=== PATIENT | male | born 1940 | race Caucasian/White ===

== ENCOUNTER 2022-05-03 10:03 | Outpatient (CLI) | payer MEDICARE, SELFPAY ==
[2022-05-03 13:59] LABS: Chloride* 107 mmol/L (96-114); Potassium* 4.8 mmol/L (3.6-5.1); Sodium* 139 mmol/L (135-149)
[2022-05-03 14:01] LABS: Cholesterol* 145 mg/dL (90-199)
[2022-05-03 14:02] LABS: Alanine Aminotransferase* 28 U/L (4-50); Blood Urea Nitrogen* 34 mg/dL (7-30); Calcium* 9.3 mg/dL (8.4-10.6); Carbon Dioxide* 22 mmol/L (20-32); Creatinine* 1.7 mg/dL (0.5-1.5); Estimated Glomerular Filt Rate 40 ml/min; Glucose* 96 mg/dL (60-115); Triglycerides* 132 mg/dL (40-149)
[2022-05-03 14:03] LABS: HDL Cholesterol* 39 mg/dL (>=40); LDL Cholesterol Calculated 80 mg/dL (<100)
== END 2022-05-03 10:04 | disposition home or self-care (01) ==
PROVIDERS: PCP Family Medicine; Visit Provider Family Medicine
DX: E78.5 Hyperlipidemia, unspecified (principal); I10 Essential (primary) hypertension; N40.0 Benign prostatic hyperplasia without lower urinary tract symptoms
CPT/HCPCS: 80048; 80061; 84460

== ENCOUNTER 2022-08-20 14:34 | Outpatient (CLI) | payer MEDICARE, SELFPAY | END 2022-08-20 14:35 | disposition home or self-care (01) | LOC: NFLDREF 08-25 11:25 | PROVIDERS: PCP Family Medicine; Visit Provider Family Medicine | DX: R31.9 Hematuria, unspecified (principal); R31.29 Other microscopic hematuria; I10 Essential (primary) hypertension | CPT/HCPCS: 87086 ==

== ENCOUNTER 2022-08-30 08:15 | Outpatient (CLI) | payer MEDICARE, SELFPAY ==
--- NOTE | 2022-08-30 09:00 | CRLHL7_ITS ---
For Patients: As a result of the Century Cures Act, medical imaging exams and procedure reports are released immediately into your electronic medical record. You may view this report before your referring provider. If you have questions, please contact your health care provider. INDICATION: Microscopic hematuria. Inguinal hernia repair. Lumbar laminectomy. TECHNIQUE: Noncontrast abdominal pelvic CT. COMPARISON: April 10, 2015. FINDINGS: Clear included lung bases. Vascular calcifications in the chest including the coronary artery distribution. Small esophageal hiatal hernia. The unenhanced liver, spleen, pancreas, gallbladder, and adrenal glands are normal. Renal cysts. 8 millimeter hyperdense cyst lateral right kidney likely proteinaceous or hemorrhagic in nature. No solid renal mass or obstruction. One or 2 tiny calcification superior medial pole left kidney may reflect 1 or 2 tiny nonobstructing stones. Vascular calcification within a normal caliber abdominal aorta and iliac arteries. Sigmoid diverticulosis without active diverticulitis. Normal appendix. Mild prostatic enlargement. Prostatic calcifications. Calcified pelvic phleboliths. Normal-appearing urinary bladder. No ascites, lymphadenopathy, bowel obstruction, or ileus. Postsurgical change from lower lumbar laminectomies. No acute compression fractures of the included spine. IMPRESSION: 1. Two tiny adjacent calcifications upper left kidney likely tiny nonobstructing stones. 2. Renal cysts with a tiny hyperdense 8 mm right renal cortical cyst likely proteinaceous or hemorrhagic. 3. Left tony colonic diverticulosis without diverticulitis. 4. Vascular calcifications in the chest abdomen and pelvis predominantly arterial. Please note that all CT scans at this facility use dose modulation, iterative reconstruction, and/or weight-based dosing when appropriate to reduce radiation dose to as low as reasonably achievable. Dictated by Ryan Camargo MD @ 08/30/2022 8:46:50 AM (Electronically Signed)
== END 2022-08-30 08:16 | disposition home or self-care (01) ==
PROVIDERS: PCP Family Medicine; Visit Provider Family Medicine
DX: R31.29 Other microscopic hematuria (principal); N28.89 Other specified disorders of kidney and ureter; N28.1 Cyst of kidney, acquired; K57.30 Diverticulosis of large intestine without perforation or abscess without bleeding
CPT/HCPCS: 74176

== ENCOUNTER 2022-09-06 11:46 | Outpatient (CLI) | payer MEDICARE, SELFPAY ==
[2022-09-06 16:14] LABS: Chloride* 108 mmol/L (96-114); Potassium* 4.8 mmol/L (3.6-5.1); Sodium* 141 mmol/L (135-149)
[2022-09-06 16:16] LABS: Creatinine* 2.2 mg/dL (0.5-1.5); Estimated Glomerular Filt Rate 29 ml/min
[2022-09-06 16:17] LABS: Blood Urea Nitrogen* 53 mg/dL (7-30); Calcium* 8.9 mg/dL (8.4-10.6); Carbon Dioxide* 26 mmol/L (20-32); Glucose* 97 mg/dL (60-115)
== END 2022-09-06 11:47 | disposition home or self-care (01) ==
LOC: FBOREF 11:47
PROVIDERS: PCP Family Medicine; Visit Provider Family Medicine
DX: I10 Essential (primary) hypertension (principal)
CPT/HCPCS: 80048

== ENCOUNTER 2022-10-01 11:48 | Outpatient (CLI) | payer MEDICARE, SELFPAY ==
[2022-10-01 14:06] LABS: Chloride* 108 mmol/L (96-114)
[2022-10-01 14:07] LABS: Potassium* 4.7 mmol/L (3.6-5.1); Sodium* 141 mmol/L (135-149)
[2022-10-01 14:09] LABS: Creatinine* 1.8 mg/dL (0.5-1.5); Estimated Glomerular Filt Rate 37 ml/min
[2022-10-01 14:10] LABS: Blood Urea Nitrogen* 33 mg/dL (7-30); Calcium* 8.9 mg/dL (8.4-10.6); Carbon Dioxide* 27 mmol/L (20-32); Glucose* 93 mg/dL (60-115)
== END 2022-10-01 11:49 | disposition home or self-care (01) ==
LOC: NFLDREF 11:48
PROVIDERS: PCP Family Medicine; Visit Provider Family Medicine
DX: I10 Essential (primary) hypertension (principal)
CPT/HCPCS: 80048

== ENCOUNTER 2023-03-08 11:44 | Outpatient (CLI) | payer MEDICARE, SELFPAY | END 2023-03-08 11:45 | disposition home or self-care (01) | PROVIDERS: PCP Family Medicine; Visit Provider Family Medicine | DX: E55.9 Vitamin D deficiency, unspecified (principal); E53.8 Deficiency of other specified B group vitamins; E03.9 Hypothyroidism, unspecified; I10 Essential (primary) hypertension; E78.5 Hyperlipidemia, unspecified; R20.0 Anesthesia of skin | CPT/HCPCS: 80048; 82306; 82607; 84439; 84443; 85025 ==

== ENCOUNTER 2023-07-08 15:13 | Outpatient (CLI) | payer MEDICARE, SELFPAY | END 2023-07-08 15:14 | disposition home or self-care (01) | LOC: NFLDUCREF 15:14 | PROVIDERS: PCP Family Medicine; Visit Provider Physician Assistant | DX: R60.0 Localized edema (principal) | CPT/HCPCS: 83880 ==

== ENCOUNTER 2023-07-29 09:00 | Outpatient (RCR) | payer MEDICARE, SELFPAY ==
--- NOTE | 2023-05-09 15:42 | PT.OPEX ---
PT [facility] Outpatient Eval PT [facility] Outpatient Eval Start: 05/09/23 11:05 Freq: Status: Active Protocol: Document 05/09/23 11:05 LINDSAYJAYLEN (Rec: 05/09/23 15:16 CASSANDRA [id number]) E-signed By [facility] Out[facility] Evaluation Insurance Information Recert Due Date 08/08/23 Insurance Name Medicare Maribel Olivares Medical Diagnosis R26.89 Other abnormalities of gait and mobility Treating Diagnosis R26.81 Unsteadiness on feet R26.9 Gait abnormality Referring MD Leandro Brunson Subjective Subjective Pt present to PT with complaints of balance problems . Pt reports that he has had some troubles with balance and has fallen a lot. Last fall was 3 weeks ago, he rolled out of bed. In the last 6 months, pt has fallen around 3 or 4 times. Pt says sometimes he's walking forward and then will fall sideways. Pt reports that he has high BP and will get dizzy if he stands up too fast . Pt displays some confusion, stating that he's here because the sun hurts him. Provides some hx that doesn't make sense. Denies getting dizzy when he's walking. Pt does not use SPC or walker. Lives at home with spouse and currently drives. Denies changes in vision, new numbness/tingling, swallowing, and speech. Pt states that he had an operation in his back a few years ago and if he lifts something, sometimes his back hurts. He also has some numbness/tingling that travels down the L posterior leg that comes and goes depending on the activity the pt is performing. Occasionally sees a chiropractor for back pain. Date of Last Physician Visit 04/12/23 Current Work Status Retired Precautions Treatment Precautions/Contraindications PMHx: hypothyroidism, pituitary adenoma, HTN, HLD Therapy Limitations/Systems Review Cognition Objective Range of Motion UE: B shoulder flexion limited to ~120 degrees LE: WNLs B Strength UE strength: BUE strength symmetrical and WNLs LE strength: Hip flexion L/R = 5/4+ Hip abd L/R = 5/5 Hip add L/R = 5/5 Quads L/R = 5/5 Hamstrings L/R = 5/5 Dorsiflexion L/R = 4+/4+ Balance & Gait EC: moderate sway, no LOB, able to hold 30s Unsupported on foam: moderate sway, mult LOB posteriorly EC on foam: moderate sway, no LOB Marching unsupported on foam: no LOB, mild unsteadiness Ambulates with narrow MARLO, mild sway, no AD use. Displays limited tolerance to activity , fatigue and SOB with walk down hallway ~50' Occasionally will shuffle feet while walking during activities that challenge his balance Functional Test Performed & Score High = 37/56 TUG = 9.54s 5xSTS = 21.62s Assessment Assessment/Impression Pt is a 83yo M presenting to PT with complaints of balance deficits. PMHx: hypothyroidism , pituitary adenoma, HTN, HLD. Pt reports that he's fallen 3 -4x in the last 6 months. Does not use an AD. He states that he'll be walking and start leaning towards one side and stumble. Pt displays some cognitive deficits. Pt thought he was coming to PT because the sun makes him tired. Upon exam, pt displays good strength in BUEs and LEs. Pt tends to shuffle LEs during gait when he is unsure about a situation. Pt scored a 37/56 on the High as well as 21.62s on the 5xSTS, both indicating that pt is a fall risk. Most of pt's deficits are evident during SL stance. Pt also displays reduced activity tolerance, requiring frequent rest breaks. Pt was educated on and given HEP for home focusing on SL stance. Pt would continue to benefit from skilled PT services to address balance and gait deficits and reduce fall risk. Primary Functional Limitations Balance and gait deficits Frequent falls Plan of Care Rehabilitation Potential Good Physical Therapy Goals In 4-6 weaks: 1. Pt will inc High score > 4 points in order to reduce fall risk. 2. Pt will reports no falls in the next 8 weeks in order to show balance improvement. 3. Pt will perform the 5xSTS in <16s in order to reduce fall risk. Coordination/Communication With Referral Source Treatment Plan/Direct Interventions Gait Training,Neuromuscular Re -ed,Self-Care/Home Management, Therapeutic Activities, Therapeutic Exercises Frequency/Duration 1x/week for 6 weeks Patient Will Be Discharged From Therapy Completion of LTG(s),Skills Plateau,Independent w/HEP, Independently Progressing Evaluation Billing Untimed Code Treatment Minutes 40 PT Eval No Charge No Complexity Moderate Certification Information Initial Certification Date 05/09/23 Ending Certification Date 08/08/23 Provider Signature Shows Agreement With POC & Medical Necessity Physician Comment/Change : Physician NPI Number #
== END 2023-09-19 08:11 | disposition home or self-care (01) ==
PROVIDERS: PCP Family Medicine; Visit Provider Family Medicine
DX: R26.89 Other abnormalities of gait and mobility (principal); Z51.89 Encounter for other specified aftercare
CPT/HCPCS: 97110; 97112; 97162; 97535

== ENCOUNTER 2023-08-10 10:52 | Outpatient (CLI) | payer MEDICARE, SELFPAY | END 2023-08-10 10:53 | disposition home or self-care (01) | LOC: FBOREF 10:53 | PROVIDERS: PCP Family Medicine; Visit Provider Family Medicine | DX: I10 Essential (primary) hypertension (principal) | CPT/HCPCS: 80048 ==

== ENCOUNTER 2023-09-06 11:26 | Outpatient (CLI) | payer MEDICARE, SELFPAY ==
--- OUTSIDE RECORDS SUMMARY | 2023-09-06 11:34 | XMS_ITS | Continuity of Care Document ---
Author Name [facility] Organization [facility] Care Team Providers Care Bridge Engineer Name Role Phone [facility] Unavailable Unavailable Problems Combined list of problems from Department of [facility] and [facility] facilities. It does not include entries that were removed or entered in error. Problem Status Onset Date Problem Type Date of Resolution Comments Source Diagnosis: ICD-10-CM H90.5 Unspecified sensorineural hearing loss Active Diagnosis [facility] Diagnosis: ICD-10-CM Z46.1 Encounter for fitting and adjustment of hearing aid Active Diagnosis [facility] Diagnosis: ICD-10-CM H69.93 Unspecified Eustachian tube disorder, bilateral Active Diagnosis [facility] Diagnosis: ICD-10-CM H90.3 Sensorineural hearing loss, bilateral Active Diagnosis [facility] Immunizations Combined list of available immunizations from the Department of [facility] and [facility] facilities. Immunization Series Date Given Administered By Site Reaction Lot Number CVX Code Drug Occupational Therapist Rehab Manager Status Comments Source COVID-19 (NASOFORM), MRNA, LNP-S, PF, 30 MCG/0.3 ML DOSE 2 2020 208 complet ed PFR; [id number]; 1 [facility] COVID-19 (PFIZER), MRNA, LNP-S, PF, 30 MCG/0.3 ML DOSE 1 2020 208 complet ed PFR; [id number]; 1 [facility] Encounters Combined list of: 1) Encounters from Department of [facility] facilities going back up to thelast 18 months. 2) Encounters from the Department of [facility] facilities going back up to 280 months. Location Location Details Encounter Type Encounter Number Reason For Visit Attending Provider ADM Date DC Date Status Disposition Source [facility] O/P EST [place]AL [place] [id number] Diagnos is: ICD-10- CM H90.3 Sensori neural hearing loss, bilater al
JANETTE CORBIN AEL F 03/17 [facility] HEARING AID FITTING/CH ECKING [id number] Diagnos is: ICD-10- CM Z46.1 Encount er for fitting and adjustm ent of hearing aid<br/ > VIRI ESCALANTE RTHA R 05/04 [facility] Outpatient Encounter [id number] Diagnos is: ICD-10- CM H90.5 Unspeci fied sensori neural hearing loss
[facility] 05/20 [facility] OFF[facility] O/P NEW MOD 45-59 MIN [id number] Diagnos is: ICD-10- CM H69.93 Unspeci fied Eustach marlen tube disorde r, bilater al
REINIER ARIAS LA 06/04 [facility] Outpatient Encounter [id number] Diagnos is: ICD-10- CM H90.5 Unspeci fied sensori neural hearing loss
BOAZ DE LA ROSA 09/08 [facility] Outpatient Encounter [id number] JANICE SANTANA 09/30 [facility] HEARING AID FITTING/CH ECKING [id number] Diagnos is: ICD-10- CM Z46.1 Encount er for fitting and adjustm ent of hearing aid<br/ > MYA GARAY 10/12 [facility] Outpatient Encounter [id number] Diagnos is: ICD-10- CM H90.5 Unspeci fied sensori neural hearing loss
BOAZ DE LA ROSA 10/13 [facility] Outpatient Encounter [id number] 02/16 [facility] Outpatient Encounter [id number] 03/28 [facility] Outpatient Encounter [id number] 05/23 [facility] Outpatient Encounter [id number] 07/07 [facility]
--- OUTSIDE RECORDS SUMMARY | 2023-09-06 11:35 | XMS_ITS | Clinical Summary ---
Author Name Unknown Organization [facility] Address [place], [place] [address] Care Team Providers Care Media Production Manager Name Role Phone Leandro Brunson MD Primary Care Provider + Barby Jiang MD Unavailable [phone] Brien Parsons MD Unavailable Howie Machado MD Unavailable [phone] Allergies Active Allergy Reactions Criticality Noted Date Comments Hydrocodone Nausea Only 04/05/2019 Ibuprofen *Unknown 02/16/2019 Small intenstinal bacterial overgrowth Prednisolone GI Upset 02/03/2019 Intestinal bacterial overgrowth Omeprazole Other - Describe In Comment Field High 08/23/2019 Small Intestinal issues Medications Medication Sig Dispensed Refills Start Date End Date Status simvastatin (ZOCOR) 20 mg tablet Take 20 mg by mouth at bedtime. 0 02/12/2019 Active aspirin chewable 81 mg chewable tablet Take 1 tablet by mouth once daily with a meal. May resume 06/19/19 0 06/19/2019 Active losartan (COZAAR) 100 mg tablet Take 1 tablet by mouth once daily. 0 12/10/2019 Active tamsulosin (FLOMAX) 0.4 mg capsule Take 1 Capsule (0.4 mg) by mouth once daily after a meal. 0 11/17/2020 Active pantoprazole (PROTONIX) 40 mg delayed-release tablet Take 1 Tablet (40 mg) by mouth once daily. 0 11/17/2020 Active ipratropium (ATROVENT NASAL) 21 mcg (0.03 %) nasal spray 2 sprays once daily 0 11/13/2020 Activ e syringe with needle, safety 3 mL 18 gauge x 1 1/2 syrgIndications:Low testosterone As directed. Use to draw up and inject testosterone every 2 weeks 6 Syringe 3 11/17/2020 Active Safety [place] (BD SafetyGlide Needle) 18 gauge x 1 1/2 ndleIndications:Low testosterone As directed. 6 Each 3 11/24/2020 Active B-D 3cc Luer-Jeniffer Syr 64Gr9-8/2 3 mL 18 x 1 1/2 syrgIndications:Oth er specified abnormal findings of blood chemistry DIRECTED. USE TO DRAW UP AND INJECT TESTOSTERONE EVERY 2 WEEKS 6 Each 3 01/28/2022 Active metoprolol succinate (TOPROL XL) 100 mg Sustained-Release tablet Take 100 mg by mouth once daily. 0 01/11/2022 Active doxazosin (CARDURA) 4 mg tablet Take 4 mg by mouth once daily. 0 05/13/2022 Active escitalopram oxalate (LEXAPRO) 10 mg tablet Take 10 mg by mouth once daily. 0 05/03/2022 Active [place] Disp [place] 68Ii4-7/2 22 gauge x 1 1/2 ndleIndications:Low testosterone DIRECTED. USE TO INJECT TESTOSTERONE EVERY 2 WEEKS 6 Each 3 06/27/2022 Active hydrocortisone PF (Solu-CORTEF Act-O-Vial, PF,) 100 mg/2 mL injectionIndication s:Low serum cortisol level Inject 2 mL (100 mg) intramuscular one time if needed (use if unable to take oral hydrocortisone.). Use as needed for critical illness and unable to tolerate oral glucocorticoids 2 mL 3 07/12/2022 Active B-D 3cc Luer-Jeniffer Syr 92Bg6-2/2 3 mL 21 gauge x 1 1/2 syrgIndications:Low serum cortisol level DIRECTED. USE NEEDED FOR STEROID INJECTION 12 Each 3 08/09/2022 Active furosemide (LASIX) 40 mg tablet Take 40 mg by mouth every morning. 0 08/20/2022 Active finasteride (PROSCAR) 5 mg tablet Take 5 mg by mouth every morning. 0 Active levothyroxine (SYNTHROID) 75 mcg tabletIndications:P ituitary adenoma (HC),Other specified hypothyroidism Take 1 Tablet (75 mcg) by mouth before breakfast. 90 Tablet 3 02/22/2023 Active hydrocortisone (CORTEF) 10 mg tabletIndications:P ituitary adenoma (HC),Secondary adrenal insufficiency (HC) 10 mg upon waking and 10 mg 6-8 hours later. Take with food 180 Tablet 2 02/22/2023 Active testosterone cypionate (DEPO-TESTOSTERONE) 100 mg/mL injectionIndication s:Low testosterone Inject 100 mg intramuscular every 2 weeks. 10 mL 3 02/22/2023 Active clonazePAM (KLONOPIN) 0.5 mg tabletIndications:R BD (REM behavioral disorder) Take 1 Tablet (0.5 mg) by mouth at bedtime. 30 Tablet 3 06/14/2023 Active BD Regular Bevel [place] 22 gauge x 1 ndleIndications:Low testosterone USE DIRECTED TO INJECT TESTOSTERONE EVERY 2 WEEKS 6 Each 3 07/26/2023 Active CPAPIndications:GIBSON (obstructive sleep apnea) CPAP machine for home use at pressure 11 cmw, full face mask x1/3month with a full face cushion x1/mo 1 Each 11 08/03/2023 Active Active Problems Problem Noted Date Diagnosed Date GIBSON 05/26/2021 AHI- 7.2 FFM 01/07/2022 RBD (REM behavioral disorder) 01/07/2022 Pituitary adenoma 06/15/2019 Disorders of bursae and tend ons in shoulder region, unspecified 11/28/2007 Esophageal reflux 12/28/2006 Overview: Developed SIBO on proton pump inhibitor. Now uses Tums as needed Unspecified essential hypertension 12/28/2006 Other and unspecified hyperlipidemia 12/28/2006 Hypertrophy of prostate with out urinary obstruction and other lower urinary tract symptoms (LUTS) 12/28/2006 Encounters Date Type Department Care Team Description 08/11/2023 Telephone [facility] [address] [place] [address] Rafa Almaraz, AuD Hearing Aid 08/03/2023 11:30 AM APPRENTICE MACHINIST OUTSIDE Office Visit [facility] [address] [place] [address] Sudeep Quan MD Sleep Follow-up 08/03/2023 Travel 07/25/2023 Refill [facility] [address] [phone] Barby Jiang MD Refill Request (Bd Regular Bevel [place]) 07/07/2023 10:30 AM APPRENTICE MACHINIST OUTSIDE Office Visit [facility] [address] [place] [address] Rafa Almaraz, Sosa Hearing Aid 07/07/2023 Travel 06/27/2023 Telephone [facility] [address] [facility] [address] [place] [phone] Barby Jiang MD Appointment 06/27/2023 Telephone [facility] [address] [place] [address] Rafa Almaraz, [facility] (/) 06/16/2023 Telephone [facility] [address] [place] [address] Rafa Almaraz AuD 06/14/2023 Refill [facility] [address] [place] [address] Sudeep Quan MD Refill Request (CLONAZEPAM) 06/06/2023 Telephone [facility] [address] [facility] [place] [address] Rafa Almaraz, Sosa Hearing Aid from Last 3 Months Immunizations Name Administration Dates Next Due AMB INFLUENZA IIV3 (AGE 65+ YRS) PF (Flu Clinic Only) 05/18/2019,06/06/2018 COVID-19 vaccine (Pfizer-Bio NTech 30mcg/0.3mL) 12YO+ BIVALENT PF, MDV 05/31/2022 COVID-19 vaccine (Pfizer-Bio NTech 30mcg/0.3mL) PF, MDV 10/04/2020,09/13/2020 HepA-HepB (Twinrix) 02/17/2015, 8,09/27/2007,2006 Influenza, High-dose Inactivated 07/27/2016,05/08,05/06/2014 Influenza, High-dose Quadriv alent Inactivated 05/21/2022 Influenza, IIV3 (Age 6-35 mos) 08/15/2013 Influenza, IIV3 (Age >=3 years) 05/25/1997 Influenza, IIV4 04/15/2015 Influenza, Inactivated AIIV4 (Age 65+ Years) Preserv Free 05/03/2023,04/22/2021,04/15/2020 Influenza, Inactivated IIV3 (Age 65+ Years) Preserv Free 06/03/2017 Pneumococcal Poly,23-Valent (Pneumovax) 04/05/2018,12/28/2006 Pneumococcal conj 13-Valent (Prevnar 13) 11/12/2014 Td (Age >=7 Years) 08/04/2004 Tdap 03/08/2023 Typhoid (injectable) 02/04/2012 Zoster (Shingrix-RZV, recombinant) 09/21/2018, Zoster (Zostavax-ZVL, live) 12/28/2006 Family History Medical History Relation Name Comments Hypertension Brother 3 Heart Disease Brother 4 heart valve pr oblem Heart Disease Father Sudden a t home in his 70s, presumably cardiac in nature Hyperlipidemia Sister 1 Diabetes Sister 2 Relation Name Status Comments Brother 1 Alive Brother 2 Alive Brother 3 Alive Brother 4 Alive Father (Age 70s) Mother age 98 Sister 1 Alive Sister 2 Alive Social History Tobacco Use Types Packs/Day Years Used Date Smoking Tobacco: Former Cigarettes 1 45 0 09/27/1956 - 09/27/2001 Smokeless Tobacco: Never Tobacco Cessation:Counseling Given: Yes Alcohol Use Standard Drinks/Week Comments Not Currently 0 (1 standard drink = 0.6 oz pur e alcohol) occas Social Connections Answer Date Recorded Frequency of Communication with Friends and Fami ly Not on file 08/08/2021 Financial Resource Strain Answer Date R ecorded Difficulty of Paying Living Expenses Not on file 08/08/2021 Difficulty of Paying Living Expenses Not on file 08/08/2021 Sex and Gender Information Value Date Recorded Sex Assigned at Not on file Gender Identity Not on file Sexual Orientation Not on file Obstetrics History Last Filed Vital Signs Vital Sign Reading Time Taken Comments Blood Pressure 181/76 08/03/2023 11:36 AM APPRENTICE MACHINIST OUTSIDE Pulse 57 08/03/2023 11:32 AM APPRENTICE MACHINIST OUTSIDE Temperature 36.7 ??C (98 ??F) 08/25/2020 9:44 AM APPRENTICE MACHINIST OUTSIDE Respiratory Rate 14 12/28/2021 1:04 PM CDT Oxygen Saturation 99% 08/03/2023 11: 32 AM APPRENTICE MACHINIST OUTSIDE Inhaled Oxygen Concentration - - Weight 97.9 kg (215 lb 12.8 oz) 023 11:32 AM APPRENTICE MACHINIST OUTSIDE Height 172.5 cm (5' 7.91) 08/03/2023 1 1:32 AM APPRENTICE MACHINIST OUTSIDE Body Mass Index 32.9 08/03/2023 11:32 AM APPRENTICE MACHINIST OUTSIDE Plan of Treatment Upcoming Encounters Date Type Department Care Team (Late st Contact Info) Description 02/20/2024 1:30 PM CDT Office Visit [facility] [address] [place] [phone] Barby Jiang MD [address] [address] Health Maintenance Due Date Last Done Comments Depression screening for age 12+ 1952 Medicare Wellness for age 65+ 2006 BMI (ht and wt on same day) for age 18+ 08/03/2024 08/03/2023, 02/22/2023, 07/12/2022, Additional history exists Tetanus booster 03/08/2033 03/08/2023, 08/04/2004 Pneumococcal series for age 65+ Completed 04/05/2018, 11/12/2014, 12/28/2006 Zoster (shingles) series for age 50+ Completed 09/21/2018, 04/05/2018, 12/28/2006 Tdap Completed 03/08/2023 Influenza for age 65+ Completed 05/03/2023 , 05/21/2022, 04/22/2021, Additional history exists COVID-19 vaccine series Completed 07/12/20, 05/31/2022, 11/23/2021, Additional history exists Medical Devices Implanted Type Area Clinical Reviewer Device Identifier Shelf Expiration Date Model / Serial / Lot Implnt Transphenoidal Sellar Porex - [id number] Implanted:Qty: 1 on 06/14/2019 by Brien Parsons MD at [facility] N/A: Cranium [place] Craniomaxillofacial 04/07/2028 [id number] / / [id number] Advance Directives Latest Code Status on File Code Status Date Activated Date Inactivated Comments Full Code 06/14/2019 6:54 AM 06/15/2019 7:27 PM Care Teams Media Production Manager Relationship Specialty Start Date End Date Leandro Brunson MD [address] [place] [address] PCP - General Family Practice 06/21/19 Barby Jiang MD [address] [place] [address] Endocrinology Endocrinology 06/21/19 Brien Parsons MD [address] [address] Surgery - Neurological 04/21/20 [place] [address] [address], [place] [address] Surgery - Ophthalmology 04/21/20
== END 2023-09-06 11:27 | disposition home or self-care (01) ==
LOC: FBOREF 11:27
PROVIDERS: PCP Family Medicine; Visit Provider Family Medicine
DX: I10 Essential (primary) hypertension (principal)
CPT/HCPCS: 80048

== ENCOUNTER 2023-09-20 10:17 | Outpatient (CLI) | payer MEDICARE, SELFPAY ==
--- OUTSIDE RECORDS SUMMARY | 2023-09-21 06:16 | XMS_ITS | Continuity of Care Document ---
Author Name [facility] Organization [facility] Care Team Providers Care Braille Duplicating Machine Operator Name Role Phone [facility] Unavailable Unavailable Problems Combined list of problems from Department of [facility] and [facility] facilities. It does not include entries that were removed or entered in error. Problem Status Onset Date Problem Type Date of Resolution Comments Source Diagnosis: ICD-10-CM H90.5 Unspecified sensorineural hearing loss Active Diagnosis [facility] Diagnosis: ICD-10-CM Z46.1 Encounter for fitting and adjustment of hearing aid Active Diagnosis [facility] Diagnosis: ICD-10-CM H69.93 Unspecified Eustachian tube disorder, bilateral Active Diagnosis [facility] Diagnosis: ICD-10-CM H90.3 Sensorineural hearing loss, bilateral Active Diagnosis [facility] Immunizations Combined list of available immunizations from the Department of [facility] and [facility] facilities. Immunization Series Date Given Administered By Site Reaction Lot Number CVX Code Drug On Air Director Status Comments Source COVID-19 (1d4 Pty), MRNA, LNP-S, PF, 30 MCG/0.3 ML DOSE 2 2020 208 complet ed PFR; [id number]; 1 [facility] COVID-19 (PFIZER), MRNA, LNP-S, PF, 30 MCG/0.3 ML DOSE 1 2020 208 complet ed PFR; [id number]; 1 [facility] Encounters Combined list of: 1) Encounters from Department of [facility] facilities going back up to thelast 18 months. 2) Encounters from the Department of [facility] facilities going back up to 280 months. Location Location Details Encounter Type Encounter Number Reason For Visit Attending Provider ADM Date DC Date Status Disposition Source [facility] O/P EST MINIMAL PROB [id number] Diagnos is: ICD-10- CM H90.3 Sensori neural hearing loss, bilater al
JANETTE CORBIN AEL F 03/17 [facility] HEARING AID FITTING/CH ECKING [id number] Diagnos is: ICD-10- CM Z46.1 Encount er for fitting and adjustm ent of hearing aid<br/ > VIRI ESCALANTE RTHA R 05/04 [facility] Outpatient Encounter [id number] Diagnos is: ICD-10- CM H90.5 Unspeci fied sensori neural hearing loss
[facility] ITA Wesley 05/20 [facility] OFFICE O/P NEW MOD 45-59 MIN [id number] Diagnos is: ICD-10- CM H69.93 Unspeci fied Eustach marlen tube disorde r, bilater al
REINIER ARIAS LA 06/04 [facility] Outpatient Encounter [id number] Diagnos is: ICD-10- CM H90.5 Unspeci fied sensori neural hearing loss
BOAZ DE LA ROSA 09/08 [facility] Outpatient Encounter [id number] JANICE SANTANA 09/30 [facility] HEARING AID FITTING/CH ECKING [id number] Diagnos is: ICD-10- CM Z46.1 Encount er for fitting and adjustm ent of hearing aid<br/ > MYA GARAY 10/12 [facility] Outpatient Encounter [id number] Diagnos is: ICD-10- CM H90.5 Unspeci fied sensori neural hearing loss
BOAZ DE LA ROSA 10/13 [facility] Outpatient Encounter [id number] 02/16 [facility] Outpatient Encounter [id number] 03/28 [facility] Outpatient Encounter [id number] 05/23 [facility] Outpatient Encounter [id number] 07/07 [facility]
--- OUTSIDE RECORDS SUMMARY | 2023-09-21 06:16 | XMS_ITS | Clinical Summary ---
Author Name Unknown Organization [facility] Address [place], [place] [address] Care Team Providers Care Studio Grip Name Role Phone Leandro Brunson MD Primary Care Provider + Barby Jiang MD Unavailable [phone] Brien Parsons MD Unavailable [phone] Howie Machado MD Unavailable Allergies Active Allergy Reactions Criticality Noted Date [...] weeks 6 Syringe 3 11/17/2020 Active Safety [place] (BD SafetyGlide Needle) 18 gauge x 1 1/2 ndleIndications:Low testosterone As directed. 6 Each 3 11/24/2020 Active B-D 3cc Luer-Jeniffer Syr 73Kf1-1/2 3 mL 18 x 1 1/2 syrgIndications:Oth [...] by mouth once daily. 0 05/03/2022 Active Evelyn Disp [place] 89Kj5-0/2 22 gauge x 1 1/2 ndleIndications:Low testosterone [...] 3 07/12/2022 Active B-D 3cc Luer-Jeniffer Syr 71Sb7-8/2 3 mL 21 gauge x 1 1/2 [...] Tablet 3 06/14/2023 Active BD Regular Bevel [place] 22 gauge x 1 ndleIndications:Low testosterone USE [...] Type Department Care Team Description 08/11/2023 Telephone [facility] [address] [place] [address] Rafa Almaraz, AuD Hearing Aid 08/03/2023 11:30 AM MANAGER CARE Office Visit [facility] [address] [place] [address] Sudeep Quan MD Sleep Follow-up 08/03/2023 Travel 07/25/2023 Refill [facility] [address] [phone] Barby Jiang MD Refill Request (Bd Regular Bevel [place]) 07/07/2023 10:30 AM MANAGER CARE Office Visit [facility] [address] [facility] [place] [address] Rafa Almaraz AuD Hearing Aid 07/07/2023 Travel 06/27/2023 Telephone [facility] [address] [facility] [facility] [address] [phone] Barby Jiang MD Appointment 06/27/2023 Telephone [facility] [address] [place] [address] Rafa Almaraz AuD Hearing Aid (/) from Last 3 Months Immunizations Name Administration Dates Next Due AMB INFLUENZA IIV3 (AGE 65+ YRS) PF (Flu Clinic Only) 05/18/2019,06/06/2018 COVID-19 vaccine (GateMe-Bio NTech 30mcg/0.3mL) 12YO+ BIVALENT PF, MDV 05/31/2022 [...] Comments Blood Pressure 181/76 08/03/2023 11:36 AM MANAGER CARE Pulse 57 08/03/2023 11:32 AM MANAGER CARE Temperature 36.7 ??C (98 ??F) 08/25/2020 9:44 AM MANAGER CARE Respiratory Rate 14 12/28/2021 1:04 PM CDT Oxygen Saturation 99% 08/03/2023 11: 32 AM MANAGER CARE Inhaled Oxygen Concentration - - Weight 97.9 kg (215 lb 12.8 oz) 023 11:32 AM MANAGER CARE Height 172.5 cm (5' 7.91) 08/03/2023 1 1:32 AM MANAGER CARE Body Mass Index 32.9 08/03/2023 11:32 AM MANAGER CARE Plan of Treatment Upcoming Encounters Date Type Department Care Team (Late st Contact Info) Description 10/04/2023 2:00 PM MANAGER CARE Office Visit [facility] [address] [facility] [place] [address] Jose Ramon Kaur MD [address] [place] [address] 02/13/2024 9:45 AM CDT Orders Only [facility] [address] [place] [address] [place] 02/20/2024 1:30 PM CDT Office Visit [facility] [address] [place] [address] [phone] Barby Jiang MD [address] [address] Health Maintenance Due Date Last Done Comments [...] history exists Medical Devices Implanted Type Area Structural Fitter Device Identifier Shelf Expiration Date Model / Serial / Lot Implnt Transphenoidal Sellar Porex - [id number] Implanted:Qty: 1 on 06/14/2019 by Brien Parsons MD at [facility] N/A: Cranium [place] Craniomaxillofacial 04/07/2028 [id number] / / [id number] Advance Directives Latest Code Status on File Code Status Date Activated Date Inactivated Comments Full Code 06/14/2019 6:54 AM 06/15/2019 7:27 PM Care Teams Studio Grip Relationship Specialty Start Date End Date Leandro Brunson MD [address] [place] [address] PCP - General Family Practice 06/21/19 Barby Jiang MD [address] [place] [address] Endocrinology Endocrinology 06/21/19 Brien Parsons MD [address] [address] Surgery - Neurological 04/21/20 [place] [address] [address], [place] [address] Surgery - Ophthalmology 04/21/20
== END 2023-09-20 10:18 | disposition home or self-care (01) ==
LOC: NFLDREF 09-21 06:14
PROVIDERS: PCP Family Medicine; Referring Provider Family Medicine; Visit Provider Internal Medicine Nephrology
DX: N18.4 Chronic kidney disease, stage 4 (severe) (principal); I10 Essential (primary) hypertension; R60.9 Edema, unspecified; N05.9 Unspecified nephritic syndrome with unspecified morphologic changes; E53.8 Deficiency of other specified B group vitamins; E03.9 Hypothyroidism, unspecified; E55.9 Vitamin D deficiency, unspecified; E78.2 Mixed hyperlipidemia
CPT/HCPCS: 80061; 80069; 82043; 82570; 82595; 82607; 82728; 82747; 83036; 83516; 83520; 83540; 83550; 84165; 84450; 84460; 84550; 85610; 86140; 86160; 86225; 86255; 86334; 87086

== ENCOUNTER 2023-09-22 08:03 | Outpatient (CLI) | payer MEDICARE, SELFPAY ==
--- OUTSIDE RECORDS SUMMARY | 2023-09-22 13:37 | XMS_ITS | Continuity of Care Document ---
Author Name [facility] Organization [facility] Care Team Providers Care Pot Tender Name Role Phone [facility] Unavailable Unavailable Problems Combined list of problems from Department of [facility] and [facility] facilities. It does not include entries that were removed or entered in error. Problem Status Onset Date Problem Type Date of Resolution Comments Source Diagnosis: ICD-10-CM H90.5 Unspecified sensorineural hearing loss Active Diagnosis [facility] Diagnosis: ICD-10-CM Z46.1 Encounter for fitting and adjustment of hearing aid Active Diagnosis [facility] Diagnosis: ICD-10-CM H69.93 Unspecified Eustachian tube disorder, bilateral Active Diagnosis [facility] Diagnosis: ICD-10-CM H90.3 Sensorineural hearing loss, bilateral Active Diagnosis [facility] Immunizations Combined list of available immunizations from the Department of [facility] and [facility] facilities. Immunization Series Date Given Administered By Site Reaction Lot Number CVX Code Drug Line Tender Status Comments Source COVID-19 ([employer]), MRNA, LNP-S, PF, 30 MCG/0.3 ML DOSE 2 2020 208 complet ed PFR; [id number]; 1 [facility] COVID-19 (PFIZER), MRNA, LNP-S, PF, 30 MCG/0.3 ML DOSE 1 2020 208 complet ed PFR; [id number]; 1 [facility] Encounters Combined list of: 1) Encounters from [facility] facilities going back up to thelast 18 months. 2) Encounters from the Department of [facility] facilities going back up to 280 months. Location Location Details Encounter Type Encounter Number Reason For Visit Attending Provider ADM Date DC Date Status Disposition Source [facility] OFFICE O/P EST MINIMAL PROB [id number] Diagnos is: ICD-10- CM H90.3 Sensori neural hearing loss, bilater al
JANETTE CORBIN AEL F 03/17 [facility] HCS HEARING AID FITTING/CH ECKING [id number] Diagnos is: ICD-10- CM Z46.1 Encount er for fitting and adjustm ent of hearing aid<br/ > VIRI ESCALANTE RTHA R 05/04 [facility] Outpatient Encounter [id number] Diagnos is: ICD-10- CM H90.5 Unspeci fied sensori neural hearing loss
[facility] ITA Wesley 05/20 [facility] OFFICE O/P NEW MOD 45-59 MIN [id number] Diagnos is: ICD-10- CM H69.93 Unspeci fied Eustach marlen tube disorde r, bilater al
REINIER ARIAS LA 06/04 [facility] Outpatient Encounter [id number] Diagnos is: ICD-10- CM H90.5 Unspeci fied sensori neural hearing loss
BOAZ DE LA ROSA 09/08 [facility] Outpatient Encounter [id number] JANICE SANTANA 09/30 [facility] HEARING AID FITTING/CH ECKING [id number] Diagnos is: ICD-10- CM Z46.1 Encount er for fitting and adjustm ent of hearing aid<br/ > MYA GARAY 10/12 [facility] Outpatient Encounter [id number] Diagnos is: ICD-10- CM H90.5 Unspeci fied sensori neural hearing loss
BOAZ DE LA ROSA 10/13 [facility] Outpatient Encounter [id number] 02/16 [facility] Outpatient Encounter [id number] 03/28 [facility] Outpatient Encounter [id number] 05/23 [facility] Outpatient Encounter [id number] 07/07 [facility]
--- OUTSIDE RECORDS SUMMARY | 2023-09-22 13:38 | XMS_ITS | Clinical Summary ---
Author Name Unknown Organization [facility] Address [place], [place] [address] Care Team Providers Care Home Health Manager Name Role Phone Leandro Brunson MD Primary Care Provider + Barby Jiang MD Unavailable [phone] Brien Parsons MD Unavailable [phone] Howie Machado MD Unavailable [phone] Allergies Active Allergy Reactions Criticality Noted Date [...] weeks 6 Syringe 3 11/17/2020 Active Safety [place] (BD SafetyGlide Needle) 18 gauge x 1 1/2 ndleIndications:Low testosterone As directed. 6 Each 3 11/24/2020 Active B-D 3cc Luer-Jeniffer Syr 94Ss9-2/2 3 mL 18 x 1 1/2 syrgIndications:Oth [...] once daily. 0 05/03/2022 Active Evelyn Disp [place] 81Fn0-5/2 22 gauge x 1 1/2 ndleIndications:Low testosterone [...] 3 07/12/2022 Active B-D 3cc Luer-Jeniffer Syr 76Fw9-4/2 3 mL 21 gauge x 1 1/2 [...] Tablet 3 06/14/2023 Active BD Regular Bevel [place] 22 gauge x 1 ndleIndications:Low testosterone USE [...] Type Department Care Team Description 08/11/2023 Telephone [facility] [address] [place] [address] Rafa Almarza, AuD Hearing Aid 08/03/2023 11:30 AM CHIEF CONTRACT OFFICER Office Visit [facility] [address] [place] [address] Sudeep Quan MD Sleep Follow-up 08/03/2023 Travel 07/25/2023 Refill [facility] [address] [phone] Barby Jiang MD Refill Request (Bd Regular Bevel [place]) 07/07/2023 10:30 AM CHIEF CONTRACT OFFICER Office Visit [facility] [address] [facility] [place] [address] Rafa Almaraz AuD Hearing Aid 07/07/2023 Travel 06/27/2023 Telephone [facility] [address] [facility] [facility] [address] [phone] Barby Jiang MD Appointment 06/27/2023 Telephone [facility] [address] [place] [address] Rafa Almaraz AuD Hearing Aid (/) from Last 3 Months Immunizations Name Administration Dates Next Due AMB INFLUENZA IIV3 (AGE 65+ YRS) PF (Flu Clinic Only) 05/18/2019,06/06/2018 COVID-19 vaccine (Sellf-Bio NTech 30mcg/0.3mL) 12YO+ BIVALENT PF, MDV 05/31/2022 [...] Comments Blood Pressure 181/76 08/03/2023 11:36 AM CHIEF CONTRACT OFFICER Pulse 57 08/03/2023 11:32 AM CHIEF CONTRACT OFFICER Temperature 36.7 ??C (98 ??F) 08/25/2020 9:44 AM CHIEF CONTRACT OFFICER Respiratory Rate 14 12/28/2021 1:04 PM CDT Oxygen Saturation 99% 08/03/2023 11: 32 AM CHIEF CONTRACT OFFICER Inhaled Oxygen Concentration - - Weight 97.9 kg (215 lb 12.8 oz) 023 11:32 AM CHIEF CONTRACT OFFICER Height 172.5 cm (5' 7.91) 08/03/2023 1 1:32 AM CHIEF CONTRACT OFFICER Body Mass Index 32.9 08/03/2023 11:32 AM CHIEF CONTRACT OFFICER Plan of Treatment Upcoming Encounters Date Type Department Care Team (Late st Contact Info) Description 10/04/2023 2:00 PM CHIEF CONTRACT OFFICER Office Visit [facility] [address] [facility] [place] [address] Jose Ramon Kaur MD [address] [place] [address] 02/13/2024 9:45 AM CDT Orders Only [facility] [address] [facility] [place] [address] [place] 02/20/2024 1:30 PM CDT Office Visit [facility] [address] [phone] Barby Jiang MD [address] [phone] Health Maintenance Due Date Last Done Comments [...] history exists Medical Devices Implanted Type Area Wool Hat Flanger Device Identifier Shelf Expiration Date Model / Serial / Lot Implnt Transphenoidal Sellar Porex - [id number] Implanted:Qty: 1 on 06/14/2019 by Brien Parsons MD at [facility] N/A: Cranium [place] Craniomaxillofacial 04/07/2028 [id number] / / [id number] Advance Directives Latest Code Status on File Code Status Date Activated Date Inactivated Comments Full Code 06/14/2019 6:54 AM 06/15/2019 7:27 PM Care Teams Home Health Manager Relationship Specialty Start Date End Date Leandro Brunson MD [address] [place] [address] PCP - General Family Practice 06/21/19 Barby Jinag MD [address] [place] [address] Endocrinology Endocrinology 06/21/19 Brien Parsons MD [address] [address] Surgery - Neurological 04/21/20 [place] [address] [address], [place] [address] Surgery - Ophthalmology 04/21/20
== END 2023-09-22 08:04 | disposition home or self-care (01) ==
LOC: NFLDREF 13:33
PROVIDERS: PCP Family Medicine; Referring Provider Family Medicine; Visit Provider Internal Medicine Nephrology
DX: I10 Essential (primary) hypertension (principal); N18.4 Chronic kidney disease, stage 4 (severe); N05.9 Unspecified nephritic syndrome with unspecified morphologic changes; R60.9 Edema, unspecified
CPT/HCPCS: 82570; 84156

== ENCOUNTER 2023-09-30 09:54 | Outpatient (CLI) | payer MEDICARE, SELFPAY ==
--- NOTE | 2023-09-30 11:00 | US_ITS ---
Patient: JARED GONZALEZ Facility:?[facility] Patient ID:?[id number] Site Patient ID:?[id number]. Site :?[id number] Study:?US-Abdomen/Pelvis RENAL DOPPLER / INTERVENT RAD TO R-09/30/2023 12:47:05 PM Ordering Physician:?TAJ GONZALEZ JR Final Report: INDICATION: Chronic kidney disease stage 4 TECHNIQUE: Grayscale, color Doppler and power Doppler evaluation of the kidneys and renal arteries performed. COMPARISON: CT 08/30/2022 FINDINGS: BILATERAL RENAL ARTERY DUPLEX ULTRASOUND ABDOMINAL AORTA: Peak systolic velocity = 100 cm/s. No aortic aneurysm. RIGHT KIDNEY: 10.1 cm in length. There is no hydronephrosis. Simple cyst upper pole measures 8 x 6 x 6 millimeters. Additional cyst inferior pole measures 19 x 15 x 14 millimeters. Peak systolic velocity = 123 cm/second Renal artery to aortic peak systolic velocity ratio = 1.2 Resistive indices: 0.8 Renal vein = patent LEFT KIDNEY: 10.5 cm in length. There is no hydronephrosis. Exophytic cyst arises from the upper pole measuring 4.0 x 3.7 x 4.0 cm. Smaller cyst arises from the inferior pole measuring 13 x 10 x 15 millimeters. Peak systolic velocity = 172 cm/second Renal artery to aortic peak systolic velocity ratio = 1.7 Resistive indices: 0.8 Renal vein = patent IMPRESSION: No evidence of significant renal artery stenosis. Dictated by Leandro Salazar MD @ 09/30/2023 1:28:34 PM Signed by:?Leandro Salazar MD @09/30/2023 1:28:34 PM (Electronic Signature)
== END 2023-09-30 09:55 | disposition home or self-care (01) ==
PROVIDERS: PCP Family Medicine; Visit Provider Internal Medicine Nephrology
DX: N18.4 Chronic kidney disease, stage 4 (severe) (principal); I51.7 Cardiomegaly; I35.1 Nonrheumatic aortic (valve) insufficiency; I34.0 Nonrheumatic mitral (valve) insufficiency; I10 Essential (primary) hypertension; N05.9 Unspecified nephritic syndrome with unspecified morphologic changes; R60.9 Edema, unspecified
CPT/HCPCS: 76775; 93306; 93975

== ENCOUNTER 2023-10-04 11:21 | Outpatient (CLI) | payer MEDICARE, SELFPAY | END 2023-10-04 11:22 | disposition home or self-care (01) | PROVIDERS: PCP Family Medicine; Visit Provider Family Medicine | DX: E03.9 Hypothyroidism, unspecified (principal); I10 Essential (primary) hypertension | CPT/HCPCS: 80048; 83516; 84443; 86255 ==

== ENCOUNTER 2023-10-26 09:27 | Outpatient (CLI) | payer MEDICARE, SELFPAY | END 2023-10-26 09:28 | disposition home or self-care (01) | LOC: NFLDREF 12:07 | PROVIDERS: PCP Family Medicine; Referring Provider Family Medicine; Visit Provider Internal Medicine Nephrology | DX: I10 Essential (primary) hypertension (principal); N18.4 Chronic kidney disease, stage 4 (severe); N05.9 Unspecified nephritic syndrome with unspecified morphologic changes; R60.9 Edema, unspecified | CPT/HCPCS: 80069; 82043; 82570; 87086 ==

== ENCOUNTER 2023-12-06 10:30 | Outpatient (RCR) | payer MEDICARE, SELFPAY ==
--- NOTE | 2023-11-01 13:27 | PC.NURSE ---
Diagnosis: CKD4, HTN, anemia of CKD
--- NOTE | 2023-11-02 10:02 | URNOTE ---
Prior auth not required for Aranesp ([id number]) per [facility] Injectable Drug auth list.
[2023-11-08 13:31] VITALS: BP 90/57; PULSE 59; RESP 16; TEMP 36.4; O2SAT 97
[2023-11-08 13:46] VITALS: BP 103/54
--- NOTE | 2023-11-28 14:31 | URNOTE ---
Prior authorization not required for Aranesp ([id number]) per [facility] Medical Injectable Drug authorization list. [facility] is active coverage.
[2023-12-06 11:11] VITALS: BP 143/72; PULSE 74; RESP 16; TEMP 36.5; O2SAT 98
[2023-12-06] MEDS: DARBEPOETIN ALFA (NON DIALYSIS) 100 MCG SUBCUT (11:40)
--- NOTE | 2023-12-30 16:14 | ONC.NURNOTE ---
Prieto called to cancel his 01/02 apt. He is at [facility] in [place]
== END 2024-05-06 23:59 | disposition home or self-care (01) ==
LOC: CCIC 10:30
PROVIDERS: PCP Family Medicine; Referring Provider Family Medicine; Visit Provider Clinical Nurse Specialist
DX: I13.0 Hypertensive heart and chronic kidney disease with heart failure and stage 1 through stage 4 chronic kidney disease, or unspecified chronic kidney disease (principal); N18.4 Chronic kidney disease, stage 4 (severe); N05.9 Unspecified nephritic syndrome with unspecified morphologic changes
CPT/HCPCS: 36415; 85018; 96372; J0881